=== PATIENT | female | born 1960 | race Caucasian/White ===

== ENCOUNTER 2024-02-07 19:06 | Inpatient (IN) | payer MEDICARE, OTHER ==
[~2024-02-07] VITALS: Ht 157.5 cm; Wt 68.0 kg
[2024-02-07 19:46] LABS: ADD URINE CULTURE NO; APPEARANCE,URINE Clear (CLEAR); BACTERIA,URINE Few /HPF (None Seen); BILIRUBIN,URINE Negative (NEGATIVE); BLOOD, URINE Trace-lysed Ery/uL (NEGATIVE); COLOR,URINE YELLOW (YELLOW); KETONES,URINE Negative (NEGATIVE); LEUKOCYTE ESTERASE ,URINE Negative (NEGATIVE); NITRITE, URINE Negative (NEGATIVE); PH,URINE 5.5 (5.0-8.0); PROTEIN,URINE Negative (NEGATIVE); RBC,URINE 0-2 /HPF (0-2); UGLUCOSE Negative (NEGATIVE); UROBILINOGEN,URINE 0.2 EU/dL (0.2); WBC,URINE 0-2 /HPF (0-3)
[2024-02-07 19:47] LABS: SQUAMOUS EPITHELIAL CELL,UR Few /HPF (None Seen)
[2024-02-07 19:52] LABS: AMPHETAMINE, URINE NEGATIVE (NEGATIVE); BARBITURATE, URINE NEGATIVE (NEGATIVE); BENZODIAZEPINE, URINE NEGATIVE (NEGATIVE); CANNABINOID, URINE NEGATIVE (NEGATIVE); COCCAINE, URINE NEGATIVE (NEGATIVE); OPIATE, URINE NEGATIVE (NEGATIVE); PHENCYCLIDINE SCREEN,URINE NEGATIVE (NEGATIVE)
[2024-02-07 19:55] LABS: BASOPHILS % (AUTO) 0.3 % (0.0-2.0); EOSINOPHILS # (AUTO) 0.1 K/uL (0.0-0.7); EOSINOPHILS % (AUTO) 0.5 % (0.0-6.0); HEMATOCRIT 34 % (33-45); HEMOGLOBIN 11.2 g/dL (11.5-14.8); LYMPHOCYTES # (AUTO) 1.5 K/uL (0.8-4.8); LYMPHOCYTES % (AUTO) 12.9 % (20.0-44.0); MEAN CORPUSCULAR HEMOGLOBIN 30 PG (26.0-33.0); MEAN CORPUSCULAR HGB CONC 33 g/dl (31.0-36.0); MEAN CORPUSCULAR VOLUME 89 fL (82-100); MONOCYTES # (AUTO) 0.8 K/uL (0.1-1.30); MONOCYTES % (AUTO) 7.1 % (2.0-12.0); NEUTROPHILS # (AUTO) 9.4 K/uL (1.8-8.9); NEUTROPHILS % (AUTO) 79.2 % (43.0-81.0); PLATELET COUNT (AUTO) 324 K/uL (150-450); RED BLOOD CELL COUNT(AUTO) 3.82 MIL/uL (4.0-5.2); RED CELL DISTRIBUTION WIDTH 13.9 % (11.5-15.0); WHITE BLOOD COUNT (AUTO) 11.9 K/uL (4.3-11.0)
[2024-02-07 20:08] LABS: CALCIUM, SERUM 8.6 mg/dL (8.5-10.1); CARBON DIOXIDE 25 mmol/L (21-32); CHLORIDE 96 mmol/L (98-107); CREATININE 0.4 mg/dL (0.6-1.3); GLUCOSE 106 mg/dL (74-106); POTASSIUM 3.7 mmol/L (3.5-5.1); SODIUM SERUM 127 mmol/L (136-145); UREA NITROGEN, BLOOD 7 mg/dL (7-18)
[2024-02-07 20:13] LABS: ACETAMINOPHEN 5 ug/ml (10-30); ALANINE AMINOTRANSFERASE 24 U/L (12-78); ALBUMIN 3.1 g/dL (3.4-5.0); ALCOHOL, BLOOD < 3 mg/dL (0-10); ALKALINE PHOSPHATASE 72 U/L (46-116); ASPARTATE AMINOTRANSFERASE 15 U/L (15-37); BILIRUBIN,DIRECT 0.1 mg/dL (0.0-0.2); BILIRUBIN,TOTAL 0.2 mg/dL (0.2-1.0); SALICYLATE 5.2 mg/dL (2.8-20.0); TOTAL PROTEIN, SERUM 6.5 g/dL (6.4-8.2)
[2024-02-07] MEDS ORDERED: LEVO50TA PO (20:33)
[2024-02-07] MEDS ORDERED: FERR325T28 PO (20:33)
[2024-02-07] MEDS ORDERED: IPRA4AER IH (20:33)
[2024-02-07] MEDS ORDERED: FAMO20TA80 PO (20:33)
[2024-02-07] MEDS ORDERED: OLAN10TA3 PO (20:33)
[2024-02-07] MEDS ORDERED: CRAN400C PO (20:33)
[2024-02-07] MEDS ORDERED: MELA10CA PO (20:33)
[2024-02-07] MEDS ORDERED: LORA-259 PO (20:33)
[2024-02-08] MEDS ORDERED: MAGNESIUM HYDROXIDE 30 ML UDC PO PRN
[2024-02-08] MEDS ORDERED: GEMTESA PO (00:10)
[2024-02-08] MEDS ORDERED: LOPE2TAB25 PO (00:13)
[2024-02-08] MEDS ORDERED: PALI234D IM (00:15)
[2024-02-08 00:32] VITALS: BP 128/78; TEMP 98; O2SAT 98
[2024-02-08] MEDS: BLOOD SUGAR DIAGNOSTIC 1 EACH STRIP IN ONE (00:49)
[2024-02-08] MEDS ORDERED: MIDODRINE HCL (5MG) 5 MG TABLET PO SCH (02:00)
[2024-02-08 07:46] LABS: BASOPHILS % (AUTO) 0.3 % (0.0-2.0); EOSINOPHILS # (AUTO) 0.1 K/uL (0.0-0.7); HEMATOCRIT 36 % (33-45); LYMPHOCYTES # (AUTO) 1.1 K/uL (0.8-4.8); LYMPHOCYTES % (AUTO) 15.2 % (20.0-44.0); MEAN CORPUSCULAR HEMOGLOBIN 30 PG (26.0-33.0); MEAN CORPUSCULAR HGB CONC 33 g/dl (31.0-36.0); MEAN CORPUSCULAR VOLUME 90 fL (82-100); MONOCYTES # (AUTO) 0.7 K/uL (0.1-1.30); MONOCYTES % (AUTO) 10.6 % (2.0-12.0); NEUTROPHILS # (AUTO) 5.1 K/uL (1.8-8.9); NEUTROPHILS % (AUTO) 72.9 % (43.0-81.0); PLATELET COUNT (AUTO) 404 K/uL (150-450); RED BLOOD CELL COUNT(AUTO) 3.98 MIL/uL (4.0-5.2); RED CELL DISTRIBUTION WIDTH 14.3 % (11.5-15.0)
[2024-02-08 08:00] VITALS: BP 139/85; TEMP 99.3; O2SAT 96
[2024-02-08 08:04] LABS: CALCIUM, SERUM 9.7 mg/dL (8.5-10.1); CREATININE 0.5 mg/dL (0.6-1.3)
[2024-02-08] MEDS: NICOTINE PATCH (21MG) 21 MG PATCH.TD24 TD SCH (09:10)
[2024-02-08] MEDS: LORAZEPAM 1 MG TABLET PO PRN (09:10)
[2024-02-08] MEDS: ACETAMINOPHEN 325 MG TABLET PO PRN (09:10)
[2024-02-08] MEDS ORDERED: ACET-73 PO (10:17)
[2024-02-08] MEDS ORDERED: CRAN300T PO (10:17)
[2024-02-08] MEDS ORDERED: HALOPERIDOL LACTATE INJ 5 MG/ML VIAL IM PRN (11:00)
[2024-02-08] MEDS ORDERED: diphenhydrAMINE HCL 50 MG/ML VIAL IM PRN (11:00)
[2024-02-08] MEDS: IPRATROPIUM NEB FS 0.5 MG/2.5 ML AMPUL.NEB NEB SCH (13:30)
[2024-02-08] MEDS: ALBUTEROL FS 2.5 MG/0.5 ML VIAL.NEB NEB SCH (13:30)
[2024-02-08] MEDS: ACETAMINOPHEN ES 500 MG TABLET PO PRN (14:37)
[2024-02-08 16:00] VITALS: BP 117/99; TEMP 98.6; O2SAT 98
[2024-02-08] MEDS: LOPERAMIDE HCL (2 MG CAP) 2 MG CAPSULE PO PRN (16:14)
[2024-02-08] MEDS: BENZTROPINE MESYLATE (1 MG) 1 MG TABLET PO SCH (16:14)
[2024-02-08] MEDS: FAMOTIDINE (20 MG) 20 MG TABLET PO SCH (16:14)
[2024-02-08] MEDS: HALOPERIDOL 5 MG TABLET PO SCH (16:15)
[2024-02-08 20:00] VITALS: BP 133/81; TEMP 98.4; O2SAT 99
[2024-02-08] MEDS: DIVALPROEX SODIUM 125 MG CAP.SPRINK PO SCH (21:07)
[2024-02-09] MEDS ORDERED: IPRATROPIUM NEB FS 0.5 MG/2.5 ML AMPUL.NEB NEB PRN (02:30)
[2024-02-09] MEDS ORDERED: ALBUTEROL FS 2.5 MG/0.5 ML VIAL.NEB NEB PRN (02:30)
[2024-02-09 08:00] VITALS: BP 90/63; TEMP 98; O2SAT 95
[2024-02-09] MEDS: FERROUS SULFATE (325 MG) 325 MG/TAB TABLET PO SCH (08:15)
[2024-02-09] MEDS: LEVOTHYROXINE SODIUM 50 MCG TABLET PO SCH (08:16)
[2024-02-09] MEDS ORDERED: Medication Not On Formulary EA (Cranberry Extract (Cranberry) 450 MG) PO SCH (09:00)
[2024-02-09 16:00] VITALS: BP 95/71; TEMP 97.6; O2SAT 95
[2024-02-09 20:00] VITALS: BP 102/65; TEMP 98.2; O2SAT 97
[2024-02-10 08:00] VITALS: BP 120/88; TEMP 97.5; O2SAT 98
[2024-02-10 16:00] VITALS: BP 113/80; TEMP 98.4; O2SAT 100
[2024-02-10 20:00] VITALS: BP 122/89; TEMP 99.3; O2SAT 97
[2024-02-10 20:31] VITALS: BP 122/81; TEMP 99.3; O2SAT 97
[2024-02-11 08:00] VITALS: BP 123/77; TEMP 98; O2SAT 98
[2024-02-11 16:00] VITALS: BP 129/80; TEMP 97.7; O2SAT 98
[2024-02-11] MEDS: HALOPERIDOL 5 MG TABLET PO SCH (16:29)
[2024-02-11 20:21] VITALS: BP 117/85; TEMP 97.5; O2SAT 97
[2024-02-12 08:00] VITALS: BP 128/89; TEMP 97.8; O2SAT 100
[2024-02-12 16:06] VITALS: BP 125/91; TEMP 98.2; O2SAT 100
[2024-02-12 20:19] VITALS: BP 114/83; TEMP 98.6; O2SAT 97
[2024-02-12] MEDS: ZOLPIDEM TARTRATE 5 MG TABLET PO PRN (23:13)
[2024-02-13 08:00] VITALS: BP 115/77; TEMP 98.8; O2SAT 98
[2024-02-13] MEDS: DIVALPROEX SODIUM 125 MG CAP.SPRINK PO SCH (09:31)
[2024-02-13 16:00] VITALS: BP 115/68; TEMP 99; O2SAT 97
[2024-02-13 20:23] VITALS: BP 106/75; TEMP 98.2; O2SAT 98
[2024-02-14 08:00] VITALS: BP 106/70; TEMP 97.7; O2SAT 97
[2024-02-14 16:34] VITALS: BP 103/64; TEMP 98.1; O2SAT 100
[2024-02-14 20:00] VITALS: BP 111/76; TEMP 98.4; O2SAT 97
[2024-02-15 08:00] VITALS: BP 131/90; TEMP 98; O2SAT 99
[2024-02-15] MEDS: HALOPERIDOL 5 MG TABLET PO SCH (08:39)
[2024-02-15 16:00] VITALS: BP 116/78; TEMP 98; O2SAT 97
[2024-02-15 20:00] VITALS: BP 122/78; TEMP 98.1; O2SAT 98
[2024-02-16 08:47] VITALS: BP 142/87; TEMP 98; O2SAT 97
[2024-02-16 16:29] VITALS: BP 114/83; TEMP 98.9; O2SAT 97
[2024-02-17 08:00] VITALS: BP 96/58; TEMP 98.2; O2SAT 98
[2024-02-17 16:00] VITALS: BP 114/69; TEMP 97.8; O2SAT 97
[2024-02-17 21:20] VITALS: BP 154/78; TEMP 97.8; O2SAT 98
[2024-02-18 08:00] VITALS: BP 134/77; TEMP 97.9; O2SAT 99
== END 2024-02-18 13:15 | DRG 885 ==
LOC: ER 19:29 → GPS 21:13
PROVIDERS: ADMIT Psychiatry & Neurology Psychiatry; ATTEND Internal Medicine
DX: F25.0 Schizoaffective disorder, bipolar type (principal); F50.9 Eating disorder, unspecified; F29 Unspecified psychosis not due to a substance or known physiological condition; J44.9 Chronic obstructive pulmonary disease, unspecified; F41.9 Anxiety disorder, unspecified; D50.9 Iron deficiency anemia, unspecified; E03.9 Hypothyroidism, unspecified; Z20.822 Contact with and (suspected) exposure to COVID-19; Z73.6 Limitation of activities due to disability; M62.81 Muscle weakness (generalized); F32.A Depression, unspecified; G93.0 Cerebral cysts; G40.909 Epilepsy, unspecified, not intractable, without status epilepticus
CPT/HCPCS: 36415; 80048-TC; 80061-TC; 80076-TC; 80164-TC; 81001; 85025-TC; 87081-TC; 97116-TC; 97530-TC; G0480; J1200